=== PATIENT | male | born 1940 | race Two or more races ===

== ENCOUNTER 2021-01-10 18:48 | Inpatient (IN) | payer MEDICARE, MEDICAID ==
[~2021-01-10] VITALS: Ht 165.1 cm; Wt 57.6 kg
[2021-01-10] MEDS ORDERED: VANCOMYCIN 1 G PREMIX 200 ML IV ONE (19:30)
[2021-01-10] MEDS ORDERED: PIPERACILLIN/TAZ 3.375G PREMIX 50 ML IV ONE (19:30)
[2021-01-10 20:26] LABS: HEMATOCRIT. 46.5 % (42.0-52.0); HEMOGLOBIN. 15.5 g/dL (14.0-18.0); MEAN CORPUSCULAR HEMOGLOBIN 32.3 pg (28.0-32.0); MEAN CORPUSCULAR VOLUME 96.6 fL (80.0-94.0); PLATELET 264 x1000/uL (130-400); RED BLOOD CELL COUNT 4.81 mill/uL (4.7-6.1); RED CELL DISTRIBUTION WIDTH 14.3 % (11.6-14.6)
[2021-01-10 20:34] LABS: D-DIMER 1.8 mg/L FEU (<0.50); PROTHROMBIN TIME 10.9 sec (9.6-11.0)
[2021-01-10 20:36] LABS: CHLORIDE 104 mEq/L (98-107)
[2021-01-10 21:35] LABS: PLATELET ESTIMATE NORMAL
[2021-01-11] VITALS (16 sets, daily range): BP systolic 116–211; BP diastolic 61–108
[2021-01-11] MEDS ORDERED: HYDRALAZINE 20MG/ML VIAL IV ONE ×2 (02:30→10:15)
[2021-01-11] MEDS ORDERED: LEVOFLOXACIN 500MG PREMIX 100 ML IV ONE (04:15)
[2021-01-11] MEDS ORDERED: HEPARIN 25,000 UNITS PREMIX 250 ML IV PRN (04:30)
[2021-01-11] MEDS ORDERED: HEPARIN 5000 UNITS/ML VIAL IV SCH (04:30)
[2021-01-11] MEDS ORDERED: HEPARIN 5000 UNITS/ML VIAL IV PRN ×2 (04:30)
[2021-01-11] MEDS ORDERED: CLONIDINE 0.2MG TABLET PO ONE (10:15)
[2021-01-11] MEDS ORDERED: BLOOD SUGAR DIAGNOSTIC STRIP TEST SCH (12:30)
[2021-01-11] MEDS: SODIUM CHLORIDE 0.9% 1,000 ML IV ONE ×2 (14:00→15:58)
[2021-01-11] MEDS ORDERED: DEXTROSE 50% WATER 50ML SYRINGE IV PRN (14:00)
[2021-01-11] MEDS ORDERED: CLONIDINE 0.1MG TABLET PO PRN (14:30)
[2021-01-11] MEDS: INSULIN LISPRO 100 UNITS/ML SUBCUT SCH ×3 (14:41→22:16)
[2021-01-11] MEDS: AMLODIPINE 5MG TABLET PO SCH (14:43)
[2021-01-11] MEDS ORDERED: MAGNESIUM/ALUMINUM HYDROXIDE/SIMETHICONE 30ML UDC PO PRN (15:15)
[2021-01-11] MEDS ORDERED: DIPHENHYDRAMINE 50MG/ML VIAL IV PRN (15:15)
[2021-01-11] MEDS ORDERED: ACETAMINOPHEN 325MG TABLET PO PRN ×2 (15:15)
[2021-01-11] MEDS ORDERED: ACETAMINOPHEN 650MG SUPP PR PRN ×2 (15:15)
[2021-01-11] MEDS ORDERED: GUAIFENESIN 200MG/10ML SUGAR FREE UDC PO PRN (15:15)
[2021-01-11] MEDS ORDERED: ONDANSETRON HCL 4MG/2ML INJ IV PRN (15:15)
[2021-01-11] MEDS ORDERED: NA PHOS,M-B/NA PHOS,DI-BA ENEMA 118ML PR PRN (15:15)
[2021-01-11] MEDS: CEFTRIAXONE 1,000 MG in DEXTROSE 5% WATER 50 ML IV SCH (16:40)
[2021-01-11] MEDS ORDERED: MVI, ADULT NO.1 10 ML, FOLIC ACID 1 MG, THIAMINE HCL 100 MG in SODIUM CHLORIDE 0.9% 1,0... IV ONE (17:00)
[2021-01-11] MEDS: GENTAMICIN 0.3% OPHTH DROPS 5ML BOTHEYE SCH (18:00)
[2021-01-11] MEDS: LIDOCAINE 5% PATCH TOP SCH (18:02)
[2021-01-11] MEDS: AZITHROMYCIN 500 MG in DEXT 5% WATER 250 ML IV SCH (18:02)
[2021-01-11] MEDS: BLOOD SUGAR DIAGNOSTIC STRIP TEST SCH ×2 (18:04→21:00)
[2021-01-11 18:47] LABS: BASOPHILS % 0.1 % (0.0-2.0); CHLORIDE 100 mEq/L (98-107); HEMATOCRIT. 38.2 % (42.0-52.0); LYMPHOCYTES % 8.3 % (20.0-50.0); MEAN CORPUSCULAR HEMOGLOBIN 32.5 pg (28.0-32.0); MEAN CORPUSCULAR VOLUME 95.6 fL (80.0-94.0); MEAN PLATELET VOLUME 7.3 fl (7.4-10.4); NEUTROPHILS % 83.6 % (40.0-76.0); PLATELET 206 x1000/uL (130-400); RED BLOOD CELL COUNT 3.99 mill/uL (4.7-6.1); RED CELL DISTRIBUTION WIDTH 14.5 % (11.6-14.6)
[2021-01-11] MEDS ORDERED: ENOXAPARIN 30MG/0.3ML SYR SUBCUT SCH (21:30)
[2021-01-11] MEDS: INSULIN GLARGINE UD 100 UNITS/ML SYR SUBCUT SCH ×2 (22:16→22:54)
[2021-01-12] VITALS (12 sets, daily range): BP systolic 105–164; BP diastolic 63–82
[2021-01-12] MEDS ORDERED: NITR0.4T49 SL (00:42)
[2021-01-12] MEDS ORDERED: SODI650T PO (00:42)
[2021-01-12] MEDS ORDERED: ASPI-1497 PO (00:42)
[2021-01-12] MEDS ORDERED: LINA290C PO (00:42)
[2021-01-12] MEDS ORDERED: AMLO5TAB88 PO (00:42)
[2021-01-12] MEDS ORDERED: METO25TA6 MT (00:42)
[2021-01-12] MEDS ORDERED: ATOR10TA69 PO (00:42)
[2021-01-12] MEDS ORDERED: LOSA50TA41 PO (00:42)
[2021-01-12] MEDS ORDERED: LUBI24CA5 PO (00:42)
[2021-01-12] MEDS ORDERED: INSU100I33 SQ (00:42)
[2021-01-12] MEDS ORDERED: LIPA1CAP18 MT (00:42)
[2021-01-12] MEDS ORDERED: OMEP40CA20 PO (00:42)
[2021-01-12 05:56] LABS: BASOPHILS % 0.2 % (0.0-2.0); EOSINOPHILS % 0.1 % (0.0-5.0); HEMATOCRIT. 39.1 % (42.0-52.0); HEMOGLOBIN. 13.2 g/dL (14.0-18.0); LYMPHOCYTES % 8.7 % (20.0-50.0); MEAN CORPUSCULAR HEMOGLOBIN 32.5 pg (28.0-32.0); MEAN CORPUSCULAR VOLUME 95.9 fL (80.0-94.0); MEAN PLATELET VOLUME 7.5 fl (7.4-10.4); MONOCYTES % 6.2 % (2.0-8.0); NEUTROPHILS % 84.8 % (40.0-76.0); PLATELET 194 x1000/uL (130-400); RED BLOOD CELL COUNT 4.08 mill/uL (4.7-6.1); RED CELL DISTRIBUTION WIDTH 14.6 % (11.6-14.6)
[2021-01-12 06:05] LABS: CHLORIDE 105 mEq/L (98-107)
[2021-01-12 06:20] LABS: LDL CHOLESTEROL 96 mg/dL (5-100)
[2021-01-12 06:23] LABS: HDL CHOLESTEROL 62 mg/dL (40-59)
[2021-01-12] MEDS: CLONIDINE 0.1MG TABLET PO PRN ×2 (06:28→20:24)
[2021-01-12] MEDS: BLOOD SUGAR DIAGNOSTIC STRIP TEST SCH ×4 (07:30→20:24)
[2021-01-12] MEDS: INSULIN LISPRO 100 UNITS/ML SUBCUT SCH ×4 (08:00→20:25)
[2021-01-12] MEDS: GENTAMICIN 0.3% OPHTH DROPS 5ML BOTHEYE SCH ×3 (09:47→18:10)
[2021-01-12] MEDS: TAMSULOSIN HCL 0.4MG SR CAPSULE PO SCH (09:47)
[2021-01-12 09:48] LABS: T4 FREE 1.25 ng/dL (0.76-1.46)
[2021-01-12] MEDS: LIDOCAINE 5% PATCH TOP SCH (09:49)
[2021-01-12] MEDS: AMLODIPINE 5MG TABLET PO SCH (09:50)
[2021-01-12] MEDS: INSULIN GLARGINE UD 100 UNITS/ML SYR SUBCUT SCH ×2 (10:13→22:00)
[2021-01-12] MEDS: AMIODARONE HCL 200 MG TABLET PO SCH (13:11)
[2021-01-12 17:30] LABS: CREATINE KINASE 33 IU/L (39-308); CREATINE KINASE MB FRACTION 2.4 ng/mL (0.5-3.6)
[2021-01-12] MEDS: APIXABAN 2.5 MG TABLET PO SCH (18:02)
[2021-01-12] MEDS: AZITHROMYCIN 500 MG in DEXT 5% WATER 250 ML IV SCH (18:02)
[2021-01-12] MEDS: CEFTRIAXONE 1,000 MG in DEXTROSE 5% WATER 50 ML IV SCH (18:02)
[2021-01-12 22:55] LABS: CREATINE KINASE 27 IU/L (39-308)
[2021-01-12 22:56] LABS: CREATINE KINASE MB FRACTION 1.7 ng/mL (0.5-3.6)
[2021-01-13] VITALS (8 sets, daily range): BP systolic 114–188; BP diastolic 47–93
[2021-01-13 06:58] LABS: CREATINE KINASE 21 IU/L (39-308)
[2021-01-13 06:59] LABS: CREATINE KINASE MB FRACTION 1.6 ng/mL (0.5-3.6)
[2021-01-13] MEDS: BLOOD SUGAR DIAGNOSTIC STRIP TEST SCH ×4 (07:30→21:25)
[2021-01-13] MEDS: INSULIN LISPRO 100 UNITS/ML SUBCUT SCH ×4 (08:00→21:33)
[2021-01-13] MEDS: TAMSULOSIN HCL 0.4MG SR CAPSULE PO SCH (08:15)
[2021-01-13] MEDS: AMLODIPINE 5MG TABLET PO SCH (08:15)
[2021-01-13] MEDS: AMIODARONE HCL 200 MG TABLET PO SCH ×2 (08:32→16:29)
[2021-01-13] MEDS: APIXABAN 2.5 MG TABLET PO SCH ×2 (08:32→16:30)
[2021-01-13] MEDS: LIDOCAINE 5% PATCH TOP SCH (08:40)
[2021-01-13] MEDS: GENTAMICIN 0.3% OPHTH DROPS 5ML BOTHEYE SCH ×3 (09:00→16:29)
[2021-01-13] MEDS ORDERED: PNEUMOCOCCAL 23-VAL P-SAC VAC 0.5 ML IM ONE (09:00)
[2021-01-13] MEDS: CLONIDINE 0.1MG TABLET PO PRN (09:39)
[2021-01-13] MEDS: INSULIN GLARGINE UD 100 UNITS/ML SYR SUBCUT SCH ×2 (10:00→21:33)
[2021-01-13] MEDS ORDERED: AMLODIPINE 10MG TABLET PO NR (10:15)
[2021-01-13] MEDS ORDERED: AMLODIPINE 5MG TABLET PO NR (10:30)
[2021-01-13 10:35] LABS: HEMATOCRIT. 38.2 % (42.0-52.0); MEAN CORPUSCULAR HEMOGLOBIN 32.6 pg (28.0-32.0); MEAN CORPUSCULAR VOLUME 95.6 fL (80.0-94.0); PLATELET 158 x1000/uL (130-400); RED BLOOD CELL COUNT 3.99 mill/uL (4.7-6.1); RED CELL DISTRIBUTION WIDTH 14.5 % (11.6-14.6)
[2021-01-13 10:43] LABS: CHLORIDE 103 mEq/L (98-107)
[2021-01-13 12:23] LABS: PLATELET ESTIMATE NORMAL
[2021-01-13] MEDS: CEFTRIAXONE 1,000 MG in DEXTROSE 5% WATER 50 ML IV SCH (16:10)
[2021-01-13] MEDS: AZITHROMYCIN 500 MG in DEXT 5% WATER 250 ML IV SCH (16:50)
[2021-01-13] MEDS: IPRATROPIUM/ALBUTEROL 0.5-3(2.5)MG/3ML NEB HHN SCH (20:58)
[2021-01-14] VITALS: BP 118/51
[2021-01-14] MEDS: IPRATROPIUM/ALBUTEROL 0.5-3(2.5)MG/3ML NEB HHN SCH ×5 (01:11→20:35)
[2021-01-14 04:00] VITALS: BP 136/65
[2021-01-14 08:00] VITALS: BP 165/68
[2021-01-14] MEDS: INSULIN LISPRO 100 UNITS/ML SUBCUT SCH ×4 (08:00→20:52)
[2021-01-14] MEDS: BLOOD SUGAR DIAGNOSTIC STRIP TEST SCH ×4 (08:06→20:44)
[2021-01-14] MEDS: AMLODIPINE 10MG TABLET PO SCH (08:30)
[2021-01-14] MEDS: TAMSULOSIN HCL 0.4MG SR CAPSULE PO SCH (08:31)
[2021-01-14] MEDS: AMIODARONE HCL 200 MG TABLET PO SCH ×2 (08:32→18:34)
[2021-01-14] MEDS: APIXABAN 2.5 MG TABLET PO SCH ×2 (08:32→18:34)
[2021-01-14] MEDS: LIDOCAINE 5% PATCH TOP SCH (08:34)
[2021-01-14] MEDS: GENTAMICIN 0.3% OPHTH DROPS 5ML BOTHEYE SCH ×3 (08:35→18:50)
[2021-01-14] MEDS: INSULIN GLARGINE UD 100 UNITS/ML SYR SUBCUT SCH ×2 (10:53→22:00)
[2021-01-14 12:00] VITALS: BP 146/67
[2021-01-14] MEDS ORDERED: BRIM.2 EACHEYE (15:26)
[2021-01-14] MEDS ORDERED: LANTUSUD SUBCUT (15:26)
[2021-01-14] MEDS ORDERED: LORA10TA7 MT (15:26)
[2021-01-14] MEDS ORDERED: DORZ10DR12 EACHEYE (15:26)
[2021-01-14] MEDS ORDERED: FERR210T MT (15:26)
[2021-01-14] MEDS ORDERED: ALEN70TA79 PO (15:26)
[2021-01-14] MEDS ORDERED: DOCU-150 MT (15:26)
[2021-01-14] MEDS ORDERED: TRAV2.5D9 EACHEYE (15:26)
[2021-01-14 16:00] VITALS: BP 141/54
[2021-01-14] MEDS: AZITHROMYCIN 500 MG in DEXT 5% WATER 250 ML IV SCH (18:35)
[2021-01-14] MEDS: CEFTRIAXONE 1,000 MG in DEXTROSE 5% WATER 50 ML IV SCH (18:51)
[2021-01-14] MEDS: CLONIDINE 0.1MG TABLET PO PRN (19:56)
[2021-01-14 20:00] VITALS: BP 162/70
[2021-01-15] VITALS: BP 147/69
[2021-01-15] MEDS: IPRATROPIUM/ALBUTEROL 0.5-3(2.5)MG/3ML NEB HHN SCH ×4 (02:28→22:16)
[2021-01-15 04:00] VITALS: BP 148/89
[2021-01-15] MEDS: BLOOD SUGAR DIAGNOSTIC STRIP TEST SCH ×4 (07:30→21:25)
[2021-01-15 08:00] VITALS: BP 147/71
[2021-01-15] MEDS: INSULIN LISPRO 100 UNITS/ML SUBCUT SCH ×4 (08:00→21:24)
[2021-01-15] MEDS: APIXABAN 2.5 MG TABLET PO SCH ×2 (09:21→16:18)
[2021-01-15] MEDS: AMIODARONE HCL 200 MG TABLET PO SCH ×2 (09:21→16:18)
[2021-01-15] MEDS: TAMSULOSIN HCL 0.4MG SR CAPSULE PO SCH (09:21)
[2021-01-15] MEDS: AMLODIPINE 10MG TABLET PO SCH (09:21)
[2021-01-15] MEDS: GENTAMICIN 0.3% OPHTH DROPS 5ML BOTHEYE SCH ×3 (09:22→16:15)
[2021-01-15] MEDS: INSULIN GLARGINE UD 100 UNITS/ML SYR SUBCUT SCH ×2 (09:24→21:27)
[2021-01-15] MEDS: LIDOCAINE 5% PATCH TOP SCH (09:26)
[2021-01-15] MEDS: CLONIDINE 0.1MG TABLET PO PRN (10:04)
[2021-01-15 12:00] VITALS: BP 153/63
[2021-01-15] MEDS ORDERED: IPRA3AMP9 HHN (15:41)
[2021-01-15] MEDS ORDERED: AMLO10TA80 PO (15:41)
[2021-01-15] MEDS ORDERED: AMI2 PO (15:41)
[2021-01-15] MEDS ORDERED: LANTUSUD SUBCUT (15:41)
[2021-01-15] MEDS ORDERED: LIDO700A30 TOP (15:41)
[2021-01-15] MEDS ORDERED: INSLIS SUBCUT (15:41)
[2021-01-15] MEDS ORDERED: APIX2.5T PO (15:41)
[2021-01-15] MEDS ORDERED: TAMS-11 PO (15:41)
[2021-01-15] MEDS ORDERED: AZIT500T8 PO (15:41)
[2021-01-15] MEDS ORDERED: [UNRECOGNIZED DRUG - OTHER] BOTHEYE (15:41)
[2021-01-15] MEDS: CEFTRIAXONE 1,000 MG in DEXTROSE 5% WATER 50 ML IV SCH (15:49)
[2021-01-15] MEDS: DOCUSATE SODIUM 100MG CAPSULE PO PRN (15:49)
[2021-01-15 16:00] VITALS: BP 142/60
[2021-01-15] MEDS ORDERED: AZITHROMYCIN 500 MG TABLET PO SCH (17:00)
[2021-01-15 20:00] VITALS: BP 135/60
[2021-01-15 20:40] LABS: CHLORIDE 101 mEq/L (98-107)
[2021-01-16] VITALS (7 sets, daily range): BP systolic 130–157; BP diastolic 60–69
[2021-01-16] MEDS: BLOOD SUGAR DIAGNOSTIC STRIP TEST SCH ×4 (06:15→20:48)
[2021-01-16] MEDS: INSULIN LISPRO 100 UNITS/ML SUBCUT SCH ×4 (07:40→20:49)
[2021-01-16] MEDS: IPRATROPIUM/ALBUTEROL 0.5-3(2.5)MG/3ML NEB HHN SCH ×4 (08:26→19:29)
[2021-01-16] MEDS: LIDOCAINE 5% PATCH TOP SCH (09:00)
[2021-01-16] MEDS: AMLODIPINE 10MG TABLET PO SCH (09:12)
[2021-01-16] MEDS: INSULIN GLARGINE UD 100 UNITS/ML SYR SUBCUT SCH ×2 (09:12→21:53)
[2021-01-16] MEDS: GENTAMICIN 0.3% OPHTH DROPS 5ML BOTHEYE SCH ×3 (09:12→16:58)
[2021-01-16] MEDS: APIXABAN 2.5 MG TABLET PO SCH ×2 (09:12→16:58)
[2021-01-16] MEDS: AMIODARONE HCL 200 MG TABLET PO SCH ×2 (09:12→16:58)
[2021-01-16] MEDS: TAMSULOSIN HCL 0.4MG SR CAPSULE PO SCH (09:13)
[2021-01-16] MEDS: DOCUSATE SODIUM 100MG CAPSULE PO PRN (14:12)
[2021-01-16] MEDS ORDERED: METOPROLOL TARTRATE 25MG TABLET PO SCH (21:00)
== END 2021-01-16 23:24 | DRG 871 ==
LOC: ER 18:48 → EDBEDREQDT 01-11 01:45 → EDBEDREQ 01-11 01:45 → EDBEDREQTM 01-11 01:45 → MICUSO 01-11 08:00 → 5EST 01-11 08:49 → 8WST 01-15 13:13
PROVIDERS: ADMIT Family Medicine; ATTEND Family Medicine
DX: A41.9 Sepsis, unspecified organism (principal); E43 Unspecified severe protein-calorie malnutrition; J69.0 Pneumonitis due to inhalation of food and vomit; N17.9 Acute kidney failure, unspecified; E11.9 Type 2 diabetes mellitus without complications; I10 Essential (primary) hypertension; R09.02 Hypoxemia; D64.9 Anemia, unspecified; I48.0 Paroxysmal atrial fibrillation; R79.1 Abnormal coagulation profile; Z20.822 Contact with and (suspected) exposure to COVID-19; N40.1 Benign prostatic hyperplasia with lower urinary tract symptoms; R33.8 Other retention of urine; Z79.82 Long term (current) use of aspirin; Z79.4 Long term (current) use of insulin; Z79.899 Other long term (current) drug therapy; Z68.21 Body mass index [BMI] 21.0-21.9, adult; R79.89 Other specified abnormal findings of blood chemistry
CPT/HCPCS: 36415; 71045; 71100; 74176; 80053; 80061; 82550; 82553; 82962; 83036; 83605; 83880; 84145; 84439; 84443; 84484; 85025; 85379; 87426; 90732; 93005; 93306; 93970; 94640; 97162; 97166; 97530; 99285; J0360; J0456; J0696; J1650; J1815; J1956; J3370; J3411; J3490; J7030; J7042; J7060; A4315